=== PATIENT | male | born 1970 | race American Indian/Alaskan Native ===

== ENCOUNTER 2017-09-05 20:49 | Inpatient (IN) | payer SELFPAY ==
[2017-09-05 21:30] LABS: BASO # 0.1 K/uL (0.0-0.2); BASO % 0.7 % (0.0-2.0); EOS # 0.3 K/uL (0.0-0.7); EOS % 3.2 % (0.0-4.0); HEMATOCRIT 42.6 % (35.0-51.0); LYMPH # 2.1 K/uL (1.0-4.3); LYMPH % 25.3 % (20.0-40.0); MEAN CELL VOLUME 82.6 fl (80.0-94.0); MEAN CORPUSCULAR HEMOGLOBIN 29.1 pg (27.0-31.0); MEAN CORPUSCULAR HGB CONC 35.2 g/dL (33.0-37.0); MEAN PLATELET VOLUME 10.8 fl (7.2-11.7); MONO # 0.5 K/uL (0.0-0.8); MONO % 5.8 % (0.0-10.0); NEUT # 5.4 K/uL (1.8-7.0); NRBC % 0.2 % (0.0-0.0); RED CELL DISTRIBUTION WIDTH 12.5 % (11.5-14.5); WHITE BLOOD COUNT 8.4 K/uL (4.8-10.8)
[2017-09-05 21:47] LABS: ALB/GLOB RATIO 1.3 (1.0-2.1); ALCOHOL SERUM 181 mg/dl (0-10); ALKALINE PHOSPHATASE 85 U/L (38-126); ALT/SGPT 36 U/L (21-72); AST/SGOT 23 U/L (17-59); BILIRUBIN,TOTAL 0.4 mg/dl (0.2-1.3); BLOOD UREA NITROGEN 12 mg/dl (9-20); CALCIUM 8.4 mg/dL (8.4-10.2); CARBON DIOXIDE 20 mmol/L (22-30); CHLORIDE 111 mmol/L (98-107); GFR AFRICAN-AMERICAN > 60; GLUCOSE,RANDOM 100 mg/dL (75-110); POTASSIUM 3.5 MMOL/L (3.6-5.0); SODIUM 143 mmol/l (132-148); TOTAL PROTEIN 7.1 G/DL (6.3-8.2)
--- NOTE | 2017-09-05 22:16 | ED PDOC ---
HPI: Psych/Substance Abuse Time Seen by Provider: 09/05/17 20:59 Chief Complaint (Nursing): Alcohol Ingestion Chief Complaint (Provider): Alcohol Intoxication History Per: EMS Onset/Duration Of Symptoms: Days (x today) Current Symptoms Are (Timing): Still Present Additional Complaint(s): Edinson is a 46 year old male who was brought by EMS to the emergency department for aggressive behavior and intoxication. Patient was uncooperative and aggressive prior to arrival and was unable to provide history. Provider: MARIEL Past Medical History Reviewed: Historical Data, Nursing Documentation, Vital Signs Vital Signs: Last Vital Signs Temp 98.2 F 09/05/17 20:50 Pulse 99 H 09/05/17 22:02 Resp 18 09/05/17 22:02 BP 131/92 H 09/05/17 22:02 Pulse Ox 98 09/05/17 22:02 - Family History Family History: States: Unknown Family Hx - Social History Alcohol: Social - Allergies Allergies/Adverse Reactions: Allergies Allergy/AdvReac Type Severity Reaction Status Date / Time Unobtainable Allergy Verified 09/05/17 20:56 Review of Systems Review Of Systems: ROS cannot be obtained secondary to pt's inabilty to answer questions. (Caveat: Due to intoxication, unwilling to provide history) Physical Exam - Reviewed Nursing Documentation Reviewed: Yes Vital Signs Reviewed: Yes - Physical Exam Appears: Positive for: No Acute Distress Head Exam: Positive for: ATRAUMATIC, NORMAL INSPECTION, NORMOCEPHALIC Skin: Positive for: Normal Color Eye Exam: Positive for: Normal appearance ENT: Positive for: Normal ENT Inspection Neck: Positive for: Normal Cardiovascular/Chest: Positive for: Regular Rate, Rhythm Respiratory: Positive for: Normal Breath Sounds. Negative for: Respiratory Distress Back: Positive for: Normal Inspection Extremity: Positive for: Normal ROM. Negative for: Pedal Edema, Deformity Neurologic/Psych: Positive for: Oriented (x 1), Other (Slurred speech noted, Colorful affect) - Laboratory Results Result Diagrams: 09/05/17 21:18 09/05/17 21:18 - ECG O2 Sat by Pulse Oximetry: 98 (RA) Pulse Ox Interpretation: Normal - Critical Care Total Time (In Min): 30 Medical Decision Making Medical Decision Making: Time: 21:13 Impression: 46 year old male presents to emergency department for aggressive behavior and alcohol intoxication Plan: - Alcohol Serum - CMP - DRUG SCREEN, URINE - CBC Time: 21:54 - Ativan 2 mg IM - Haldol 5 mg IM - Crisis Evaluation as Ordered - 1:1 Observation At 6AM pt is AAO x3 and has steady gait with fluent speech Pt evaluated and cleared for discharge Dx Alcohol induced mood disorder Stable Scribe Attestation: Documented by Edinson Greene, acting as a scribe for Josse Antonio MD Provider Scribe Attestation: All medical record entries made by the Scribe were at my direction and personally dictated by me. I have reviewed the chart and agree that the record accurately reflects my personal performance of the history, physical exam, medical decision making, and the department course for this patient. I have also personally directed, reviewed, and agree with the discharge instructions and disposition. Disposition - Clinical Impression Clinical Impression: Alcohol-induced mood disorder - Disposition Disposition: Routine/Home Disposition Time: 06:53 Condition: STABLE Instructions: Mood Disorders (ED), Alcohol Intoxication (ED) Forms: Agency Spotter ([place])
--- NOTE | 2017-09-06 16:29 | ED PDOC ---
- Laboratory Results Result Diagrams: 09/05/17 21:18 09/05/17 21:18 - ECG O2 Sat by Pulse Oximetry: 98 (RA) Medical Decision Making Medical Decision Making: Time: 07:00 --Patient signed over to me by Dr. Antonio pending crisis evaluation Time: 16:15 --Patient voluntarily signed into our facility under the service of Dr. Nguyen. Scribe Attestation: Documented by Kaden Lechuga, acting as a scribe for Christa Cuevas MD. Provider Scribe Attestation: All medical record entries made by the Scribe were at my direction and personally dictated by me. I have reviewed the chart and agree that the record accurately reflects my personal performance of the history, physical exam, medical decision making, and the department course for this patient. I have also personally directed, reviewed, and agree with the discharge instructions and disposition. Disposition - Clinical Impression Clinical Impression: Alcohol-induced mood disorder - POA Present On Arrival: None - Disposition Disposition: Admitted as In-Patient Disposition Time: 16:15 Condition: STABLE
--- NOTE | 2017-09-06 16:46 | CP.PCM.CON ---
History of Present Illness - History of Present Illness History of Present Illness: Edinson is a 46 year old male who was brought by EMS to the emergency department for aggressive behavior and intoxication. Patient denied any previous psychiatric history as per his family while intoxicated pt made suicidal threats holding a knife towards his abdomen and made homicidal threats towards his family including a child pt on evaluation with poor eye contact angry irritable uncooperative and agitated Past Patient History - Past Social History Alcohol: Social - CARDIAC Hx Cardiac Disorders: No Hx Hypertension: No - PULMONARY Hx Tuberculosis: No - NEUROLOGICAL HX Cerebrovascular Accident: No Hx Seizures: No - HEMATOLOGICAL/ONCOLOGICAL Hx Cancer: No Hx Human Immunodeficiency Virus (HIV): No - GENITOURINARY/GYNECOLOGICAL Hx Sexually Transmitted Disorders: No - PSYCHIATRIC Hx Substance Use: Yes Meds Allergies/Adverse Reactions: Allergies Allergy/AdvReac Type Severity Reaction Status Date / Time Unobtainable Allergy Verified 09/05/17 20:56 Physical Exam - Psychiatric Exam Additional comments: pt on evaluation, angry, poor eye contact underproductive speech irritable, unable to assess thought process Results - Vital Signs Recent Vital Signs: Last Vital Signs Temp 97.7 F 09/06/17 04:35 Pulse 73 09/06/17 04:35 Resp 16 09/06/17 04:35 BP 129/69 09/06/17 04:35 Pulse Ox 98 09/06/17 16:29 - Labs Result Diagrams: 09/05/17 21:18 09/05/17 21:18 Labs: Laboratory Results - last 24 hr 09/05/17 09/05/17 09/05/17 21:01 21:18 21:18 WBC 8.4 RBC 5.15 Hgb 15.0 Hct 42.6 MCV 82.6 MCH 29.1 MCHC 35.2 RDW 12.5 Plt Count 151 MPV 10.8 Neut % (Auto) 65.0 Lymph % (Auto) 25.3 Izard % (Auto) 5.8 Eos % (Auto) 3.2 Baso % (Auto) 0.7 Neut # 5.4 Lymph # 2.1 Izard # 0.5 Eos # 0.3 Baso # 0.1 Sodium 143 Potassium 3.5 L Chloride 111 H Carbon Dioxide 20 L Anion Gap 16 BUN 12 Creatinine 0.9 Est GFR ( Amer) > 60 Est GFR (Non-Af Amer) > 60 POC Glucose (mg/dL) 124 H Random Glucose 100 Calcium 8.4 Total Bilirubin 0.4 AST 23 ALT 36 Alkaline Phosphatase 85 Total Protein 7.1 Albumin 4.0 Globulin 3.2 Albumin/Globulin Ratio 1.3 Urine Opiates Screen Urine Methadone Screen Ur Barbiturates Screen Ur Phencyclidine Scrn Ur Amphetamines Screen U Benzodiazepines Scrn U Oth Cocaine Metabols U Cannabinoids Screen Alcohol, Quantitative 181 H 09/05/17 21:58 WBC RBC Hgb Hct MCV MCH MCHC RDW Plt Count MPV Neut % (Auto) Lymph % (Auto) Izard % (Auto) Eos % (Auto) Baso % (Auto) Neut # Lymph # Izard # Eos # Baso # Sodium Potassium Chloride Carbon Dioxide Anion Gap BUN Creatinine Est GFR ( Amer) Est GFR (Non-Af Amer) POC Glucose (mg/dL) Random Glucose Calcium Total Bilirubin AST ALT Alkaline Phosphatase Total Protein Albumin Globulin Albumin/Globulin Ratio Urine Opiates Screen Negative Urine Methadone Screen Negative Ur Barbiturates Screen Negative Ur Phencyclidine Scrn Negative Ur Amphetamines Screen Negative U Benzodiazepines Scrn Negative U Oth Cocaine Metabols Negative U Cannabinoids Screen Positive H Alcohol, Quantitative Assessment & Plan - Assessment and Plan (Free Text) Assessment: alcohol induced mood disorder with bipolar features alcohol use disorder pt at current mental status is danger to self or others refusing inpatient admission will be referred for screening for involuntary admission for stabilization
[2017-09-06 17:47] VITALS: RESP 18
--- NOTE | 2017-09-06 21:39 | PCM.BM ---
Treatment Plan Problems - Problems identified on initial assessmt Hopelessness/Helplessness Date Initiated: 09/06/17 Time Initiated: 21:38 Assessment reference: NA Status: Active Treatment assets and liabiliti Patient Assests: cooperative, self-reliant, ADL independent, negotiates basic needs Patient Liabilities: relationship conflicts - Milieu Protocol Maintain good personal hygiene: daily Encourage regular showers, every shift Remind patient to perform daily oral care Conduct patient checks and document Observation sheet: Q15 minutes Maintain personal safety: every shift Educate patient to report safety concerns to staff, every shift Monitor environment for contraband/sharps Medication safety: Monitor for expected outcome, potential side effects: every shift, Assess barriers to learning: every shift, Assess readiness for medication education: every shift
[2017-09-06] MEDS ORDERED: DiphenhydrAMINE 50 mg/ml Inj IM PRN (21:57)
[2017-09-06] MEDS ORDERED: Magnesium Hydroxide Susp 30 ml UD PO PRN (21:57)
[2017-09-06] MEDS ORDERED: Alum-Mag Hydrox-Simethicone Susp (30 mL) PO PRN (21:57)
[2017-09-07 08:37] LABS: T4 11.7 ug/dl (5.5-11.0)
[2017-09-07 08:50] LABS: THYROID STIMULATING HORMONE 1.06 mIU/ML (0.46-4.68)
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
[2017-09-07 14:56] VITALS: O2SAT 98
--- NOTE | 2017-09-08 13:37 | PCM.PYCHPN ---
Psychiatric Progress Note - Psychiatric Progress Note Patient seen today, length of contact: i will do what i need to take care of myself Patient Chief Complaint: pt on evaluation, reported at current time he needs to work on his depression, discussed with him the possible impact of alcohol on his mood and his health pt agreed, pt showing insight intoo his illness and accepting to start therapy on discharge treatment plan discussed with his over the phone upon patient consent pt denied any current side effects of medications, reported decreased sleep , no changes in appetite Medical Problems: no hx of previous psychiatric treatment DSM 5 Symptoms Update: alcohol induced mood disorder witth depressive features depression Medication Change: Yes (start trazodone) Medical Record Reviewed: Yes Mental Status Examination - Cognitive Function Orientation: Person, Place Memory: Intact Attention: WNL Concentration: WNL Association: WNL Fund of Knowledge: [facility] Decription of patient's judgement and insights: partial insight and fair judgement - Mood Mood: Depressed, Anxious - Affect Affect: Constricted, Depressed - Speech Speech: Appropriate - Formal Thought Process Formal Thought Process: No Impairment Psychotic Thoughts and Behaviors: pt denied psychotic symptoms, non elicited - Suicidal Ideation Suicidal Ideation: No - Homicidal Ideation Homicidal Ideation: No Goal/Treatment Plan - Goal/Treatment Plan Need for Continued Stay: Discharge may exacerbated symptoms Progress Toward Problem(s) and Goals/Treatment Plan: continue prozac 10mg, start trazodone 50mg qhs for insomnia motivational and group theapy Estimated Date of D/C: 09/09/17
--- NOTE | 2017-09-08 14:14 | CP.PCM.CON ---
<Agustín Hall - Last Filed: 09/08/17 14:54> History of Present Illness - History of Present Illness History of Present Illness: 46 year old male with no known PMHx seen at bedside after being admitted through ED on 09/05/17 for suicidal threats while intoxicated. Patient states that he made the threats to police who then brought him into the hospital for treatment. Patient is AAO x 3 and NAD resting comfortably in bed. Patient states that he sometimes will have these suicidal thoughts when he is drunk but denies ever having them when he is sober. He denies ever being diagnosed with depression and denies hearing any voices in his head. Patient denies any further complaints. Denies N/V/F/C/CP/SOB/posterior calf pain/urinary retention/ constipation. Denies any symptoms of alcohol withdrawal including headache and tremors. PMH: Denies Meds: No at home meds All: NKDA PSH: Fx knee, wrist, neck FH: CA, DM SH: Smoker (1 pack/day x 31 years - declines nicotine patch), ETOH (one six pack of beer every two days), cannabis, lives in a multifamily with his and stepdaughter Review of Systems - Review of Systems Review of Systems: ROS as per HPI. All other systems reviewed and found to be negative Past Patient History - Infectious Disease Hx of Infectious Diseases: None - Tetanus Immunizations Tetanus Immunization: Unknown - Past Medical History & Family History Past Medical History?: No - Past Social History Smoking Status: Heavy Smoker > 10 Cigarettes Daily Alcohol: > 2 Drinks/Day Drugs: Cannabis Home Situation {Lives}: With Family - CARDIAC Hx Cardiac Disorders: No - PULMONARY Hx Respiratory Disorders: No Hx Tuberculosis: No - NEUROLOGICAL Hx Neurological Disorder: No HX Cerebrovascular Accident: No Hx Seizures: No - HEENT Hx HEENT Problems: No - RENAL Hx Chronic Kidney Disease: No - ENDOCRINE/METABOLIC Hx Endocrine Disorders: No - HEMATOLOGICAL/ONCOLOGICAL Hx Blood Disorders: No Hx Cancer: No Hx Human Immunodeficiency Virus (HIV): No - INTEGUMENTARY Hx Dermatological Problems: No - MUSCULOSKELETAL/RHEUMATOLOGICAL Hx Musculoskeletal Disorders: No Other/Comment: hx of knee surgery "long" time ago - GASTROINTESTINAL Hx Gastrointestinal Disorders: No - GENITOURINARY/GYNECOLOGICAL Hx Genitourinary Disorders: No Hx Sexually Transmitted Disorders: No - PSYCHIATRIC Hx Substance Use: Yes (mj) - SURGICAL HISTORY Hx Surgeries: Yes Other/Comment: knee surgery - ANESTHESIA Hx Anesthesia: Yes Hx Anesthesia Reactions: No Hx Malignant Hyperthermia: No Has any member of the family had a problem w/ anesthesia?: No Meds Allergies/Adverse Reactions: Allergies Allergy/AdvReac Type Severity Reaction Status Date / Time No Known Allergies Allergy Verified 09/06/17 22:59 - Medications Medications: Current Medications Acetaminophen (Tylenol 325mg Tab) 650 mg PO Q4 PRN PRN Reason: pain level 1 to 7 Al Hydrox/Mg Hydrox/Simethicone (Maalox Plus 30 Ml) 30 ml PO Q4 PRN PRN Reason: Dyspepsia Diphenhydramine HCl (Benadryl) 50 mg IM Q6 PRN PRN Reason: Extrapyramidal S/S Unable PO Diphenhydramine HCl (Benadryl) 50 mg PO Q6 PRN PRN Reason: Extrapyramidal Symptoms Diphenhydramine HCl (Benadryl) 50 mg PO HS PRN PRN Reason: Sleep Last Admin: 09/07/17 23:00 Dose: 50 mg Fluoxetine HCl (Prozac) 10 mg PO DAILY LES Last Admin: 09/08/17 10:27 Dose: 10 mg Haloperidol (Haldol) 5 mg PO Q4 PRN PRN Reason: Agitation Haloperidol Lactate (Haldol) 5 mg IM Q4 PRN PRN Reason: Agitation, Unable to Take PO Lorazepam (Ativan) 2 mg IM Q4 PRN PRN Reason: Anxiety/Agitation,Unable PO Lorazepam (Ativan) 2 mg PO Q4 PRN PRN Reason: Anxiety/Agitation Magnesium Hydroxide (Milk Of Magnesia) 30 ml PO HS PRN PRN Reason: Constipation Trazodone HCl (Desyrel) 50 mg PO HS LES Physical Exam - Constitutional Appears: Well, Non-toxic, No Acute Distress - Head Exam Head Exam: ATRAUMATIC, NORMOCEPHALIC - Eye Exam Eye Exam: EOMI, PERRL Pupil Exam: PERRL - ENT Exam ENT Exam: Mucous Membranes Moist - Neck Exam Neck exam: Negative for: Tenderness - Respiratory Exam Respiratory Exam: Clear to Auscultation Bilateral, NORMAL BREATHING PATTERN - Cardiovascular Exam Cardiovascular Exam: REGULAR RHYTHM - GI/Abdominal Exam GI & Abdominal Exam: Soft. absent: Distended, Firm, Guarding, Tenderness - Rectal Exam Rectal Exam: Deferred - Extremities Exam Extremities exam: Positive for: normal inspection - Neurological Exam Neurological exam: Alert, Oriented x3 - Psychiatric Exam Psychiatric exam: Normal Affect, Normal Mood - Skin Skin Exam: Intact, Normal Color, Warm Results - Vital Signs Recent Vital Signs: Last Vital Signs Temp 97.7 F 09/08/17 09:00 Pulse 60 09/08/17 09:00 Resp 18 09/08/17 09:00 BP 121/71 09/08/17 09:00 Pulse Ox 98 09/07/17 14:55 - Labs Result Diagrams: 09/05/17 21:18 09/05/17 21:18 Labs: Laboratory Results - last 24 hr 09/07/17 08:03 RPR Nonreactive Assessment & Plan - Assessment and Plan (Free Text) Assessment: 46 year old male with no known PMHx seen at bedside after being admitted through ED on 09/05/17 for suicidal threats while intoxicated Plan: 1. Suicidal ideation - Continue treatment per psych - Continue medications per psych - Suicide precautions 2. Polysubstance Abuse - Tox screen: Cannabinoids (+), alcohol 181 - Patient denied nicotine patch - Monitor for withdrawals 3. Hypercholesterolemia - Cholesterol 209 - LDL cholesterol 133 4. Hyperthyroidism - Thyroxine 11.7 5. Hyperglycemia - POC glucose 124 <Edgar Merida - Last Filed: 09/08/17 15:23> Meds - Medications Medications: Current Medications Acetaminophen (Tylenol 325mg Tab) 650 mg PO Q4 PRN PRN Reason: pain level 1 to 7 Al Hydrox/Mg Hydrox/Simethicone (Maalox Plus 30 Ml) 30 ml PO Q4 PRN PRN Reason: Dyspepsia Atorvastatin Calcium (Lipitor) 20 mg PO HS LES Diphenhydramine HCl (Benadryl) 50 mg IM Q6 PRN PRN Reason: Extrapyramidal S/S Unable PO Diphenhydramine HCl (Benadryl) 50 mg PO Q6 PRN PRN Reason: Extrapyramidal Symptoms Diphenhydramine HCl (Benadryl) 50 mg PO HS PRN PRN Reason: Sleep Last Admin: 09/07/17 23:00 Dose: 50 mg Fluoxetine HCl (Prozac) 10 mg PO DAILY LES Last Admin: 09/08/17 10:27 Dose: 10 mg Haloperidol (Haldol) 5 mg PO Q4 PRN PRN Reason: Agitation Haloperidol Lactate (Haldol) 5 mg IM Q4 PRN PRN Reason: Agitation, Unable to Take PO Lorazepam (Ativan) 2 mg IM Q4 PRN PRN Reason: Anxiety/Agitation,Unable PO Lorazepam (Ativan) 2 mg PO Q4 PRN PRN Reason: Anxiety/Agitation Magnesium Hydroxide (Milk Of Magnesia) 30 ml PO HS PRN PRN Reason: Constipation Trazodone HCl (Desyrel) 50 mg PO HS LES Results - Vital Signs Recent Vital Signs: Last Vital Signs Temp 97.7 F 09/08/17 09:00 Pulse 60 09/08/17 09:00 Resp 18 09/08/17 09:00 BP 121/71 09/08/17 09:00 Pulse Ox 98 09/07/17 14:55 - Labs Result Diagrams: 09/05/17 21:18 09/05/17 21:18 Labs: Laboratory Results - last 24 hr 09/07/17 08:03 RPR Nonreactive Assessment & Plan - Assessment and Plan (Free Text) Plan: Patient seen and examined. Fully agree with findings as per residents note. For his hypercholesterolemia, he qualifies for moderate intensity statin therapy. I will start Lipitor 20 mg po HS. Euthyroid hyperthyroxinemia, mild, asymptomatic- no therapy indicated at this time. Should f/u as outpatient w/ PMD
--- NOTE | 2017-09-09 13:41 | PCM.PYCHDC ---
Mental Status Examination - Mental Status Examination Orientation: Person, Place Memory: Intact Mood: Neutral Affect: Broad Speech: Appropriate Attention: WNL Concentration: WNL Association: WNL Fund of Knowledge: WNL Formal Thought Process: No Impairment Description of patient's judgement and insight: partial insight and fair judgement Psychotic Thoughts and Behaviors: pt denied psychotic symptoms, non elicited Suicidal Ideation: No Current Homicidal Ideation?: No Discharge Summary - Discharge Note Reason for Hospitalization: ptr is a 46 year old male who was brought by EMS to the emergency department for aggressive behavior and intoxication. Patient denied any previous psychiatric history as per his family while intoxicated pt made suicidal threats holding a knife towards his abdomen and made homicidal threats towards his family including a 14 ys old child and his pt reported increased conflict with due to behavioral problems of step daughter resulted in using more alcohol denied any current suicidal or homicidal ideations denied perceptual disturbances Consultations:: List each consultation separately and include: 1. Reason for request. 2. Findings. 3. Follow-up Consultations: family practice Summary of Hospital Course include:: 1. Description of specific treatment plan utilized for patients during their course of treatmen. 2. Summarize the time- course for resolution of acute symptoms and/or regressed behaviors. 3. Describe issues identified and worked on during hospitalization. 4. Describe medication utilized. 5. Describe medical problems identified and treated. 6. Reassessment of suicide risk Summary of Hospital Course: pt won admission started on ativan protocol for symptoms and signs of alcohol withdrawal prozac 10mg started for depression motivational therapy and group therapy provided pt was educated about risk of relapse on alcohol discussed with pt possibility of being started on vivitrol for alcohol cravings on pt consent treatment plan was discussed with social servces informed that DYFS will be involved for safety of 16 yr old child pt on discharge mental ststus was stable, denied suicidal or homicidal ideations denied perceptual disturbances - Final Diagnosis (DSM 5) Condition upon Discharge: STABLE Disposition: HOME/ ROUTINE Follow-up Treatment Plan: continue prozac 10mg, start trazodone 50mg qhs for insomnia motivational and group theapy Prescriptions/Medication Reconciliation: Atorvastatin [Lipitor] 20 mg PO HS 30 Days #30 tab FLUoxetine [Prozac] 10 mg PO DAILY 30 Days #30 cap - Antipsychotic Medications Pt discharged on 2 or more routine antipsychotic medications: No
[2017-09-09 14:07] VITALS: BP 137/67; PULSE 83; TEMP 97.5
== END 2017-09-09 15:11 | disposition home or self-care (01) | DRG 895 ==
LOC: H.ER 20:49 → H.ERHOLD 09-06 16:17 → H.PSYCH 09-06 20:35
PROVIDERS: ADMIT Psychiatry & Neurology Psychiatry; ATTEND Psychiatry & Neurology Psychiatry
PROC: HZ57ZZZ Individual Psychotherapy for Substance Abuse Treatment, Motivational Enhancement (ICD-10-PCS; principal; 2017-09-06)
PROC: GZHZZZZ Group Psychotherapy (ICD-10-PCS; 2017-09-06)
DX: F10.14 Alcohol abuse with alcohol-induced mood disorder (principal); R45.851 Suicidal ideations; F10.129 Alcohol abuse with intoxication, unspecified; F32.9 Major depressive disorder, single episode, unspecified; Y90.6 Blood alcohol level of 120-199 mg/100 ml; F17.210 Nicotine dependence, cigarettes, uncomplicated; F12.10 Cannabis abuse, uncomplicated; E78.00 Pure hypercholesterolemia, unspecified; E11.65 Type 2 diabetes mellitus with hyperglycemia; G47.00 Insomnia, unspecified